=== PATIENT | male | born 1995 | race Caucasian/White ===

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

== ENCOUNTER 2017-03-02 13:32 | Observation (INO) | payer OTHER ==
[2017-03-02] MEDS ORDERED: NS 1,000 ML IV ONE (13:56)
[2017-03-02 14:02] LABS: % IMMATURE GRANULYOCYTES 0.2 % (0.0-1.1); ABSOLUTE IMMATURE GRANULOCYTES 0.01 10^3/uL (0.00-0.10); ADD DIFF? NO; ADD MORPH? NO; ADD SCAN? NO; ATYPICAL LYMPHOCYTE FLAG 0 (0-99); FRAGMENT RBC FLAG 0 (0-99); HEMATOCRIT 40.8 % (40.0-51.0); HEMOGLOBIN 13.9 g/dL (13.7-17.5); LEFT SHIFT FLG 0 (0-99); LIPEMIA HEMOLYSIS FLAG 90 (0-99); MEAN CELL HEMOGLOBIN CONCENTR. 34.1 g/dL (32.4-36.7); MEAN CELL VOLUME 82.1 fL (81.5-99.8); MEAN PLATELET VOLUME 10.8 fL (8.7-11.7); PLATELET CLUMPS FLAG 0 (0-99); PLATELET COUNT 202 10^3/uL (150-400); RED BLOOD CELL COUNT 4.97 10^6/uL (4.40-6.38); RED CELL DISTRIBUTION WIDTH 15.5 % (11.5-15.2)
--- NOTE | 2017-03-02 14:24 | EDPHY ---
HPI/HX/ROS/PE/MDM Narrative: Portions of this note were transcribed by a medical planner. I personally performed a history, physical exam, medical decision making, and confirmed accuracy of information the transcribed note. CHIEF COMPLAINT: HISTORY OF PRESENT ILLNESS: [Location, Duration, Severity, Quality, Context, Timing Modifying Factors, Associated S&S] This patient is a 21 y/o male Woke feeling well. Came back to dorm from class, ate frozen chicken nuggets. [place] discomfort periumbilical. Had GI bleed and artery burst in the spring, admitted. Had spasms following these procedures. Has followed up with GI. Discontinued Protonix in late August. Pain is now much worse and different from those spasms. Pain waxes and wanes. He had a bowel movement when the discomfort began which was normal. No nausea or vomiting. He is otherwise healthy, No fever , dysuria, hematuria, hematochezia, melena. 1. GERD. 2. GI bleed 3. REVIEW OF SYSTEMS: A 10 point review of systems was performed and is negative with the exception of the elements mentioned in the history of present illness. Adult Physical General Appearance: Alert, Eyes: Pupils equal and round, no conjunctival pallor or injection ENT, Mouth: Mucous membranes moist Neck: Normal inspection Respiratory: Lungs are clear to auscultation Cardiovascular: Regular rate and rhythm Gastrointestinal: Diffuse abdominal tenderness, primarily periumbilical. Abdomen is soft. Normal bowel sounds. Neurological: A&O, nonfocal, normal gait Skin: Warm and dry, no rash Extremities: Nontender, no pedal edema Psychiatric: Mood and affect normal - Data Points Laboratory Results: Laboratory Results 03/02/17 13:55 03/02/17 03/02/17 13:55 13:55 WBC 4.99 10^3/uL 10^3/uL (3.80-9.50) RBC 4.97 10^6/uL 10^6/uL (4.40-6.38) Hgb 13.9 g/dL g/dL (13.7-17.5) Hct 40.8 % % (40.0-51.0) MCV 82.1 fL fL (81.5-99.8) MCH 28.0 pg pg (27.9-34.1) MCHC 34.1 g/dL g/dL (32.4-36.7) RDW 15.5 % H % (11.5-15.2) Plt Count 202 10^3/uL 10^3/uL (150-400) MPV 10.8 fL fL (8.7-11.7) Neut % (Auto) 64.5 % % (39.3-74.2) Lymph % (Auto) 26.3 % % (15.0-45.0) Ware % (Auto) 8.0 % % (4.5-13.0) Eos % (Auto) 0.6 % % (0.6-7.6) Baso % (Auto) 0.4 % % (0.3-1.7) Nucleat RBC Rel Count 0.0 % % (0.0-0.2) Absolute Neuts (auto) 3.22 10^3/uL 10^3/uL (1.70-6.50) Absolute Lymphs (auto) 1.31 10^3/uL 10^3/uL (1.00-3.00) Absolute Monos (auto) 0.40 10^3/uL 10^3/uL (0.30-0.80) Absolute Eos (auto) 0.03 10^3/uL 10^3/uL (0.03-0.40) Absolute Basos (auto) 0.02 10^3/uL 10^3/uL (0.02-0.10) Absolute Nucleated RBC 0.00 10^3/uL 10^3/uL (0-0.01) Immature Gran % 0.2 % % (0.0-1.1) Immature Gran # 0.01 10^3/uL 10^3/uL (0.00-0.10) Sodium Pending Potassium Pending Chloride Pending Carbon Dioxide Pending Anion Gap Pending BUN Pending Creatinine Pending Estimated GFR Pending Glucose Pending Calcium Pending Medications Given: Discontinued Medications Sodium Chloride (Ns) 1,000 mls @ 3,000 mls/hr IV ONCE ONE Stop: 03/02/17 14:15 Last Admin: 03/02/17 13:58 Dose: 1,000 mls General Time Seen by Provider: 03/02/17 14:15 Initial Vital Signs: Initial Vital Signs Temperature (C) 36.5 C 03/02/17 13:35 Heart Rate 88 03/02/17 13:35 Respiratory Rate 22 H 03/02/17 13:35 Blood Pressure 137/85 H 03/02/17 13:35 O2 Sat (%) 98 03/02/17 13:35 O2 Delivery Mode Room Air Allergies/Adverse Reactions: No Known Allergies Allergy (Verified 03/02/17 13:41) Home Medications: Medication Instructions Recorded NK [No Known Home Meds] 03/02/17 Departure - Departure Referrals: NONE *PRIMARY CARE P,. [Primary Care Provider] - As per Instructions
[2017-03-02] MEDS ORDERED: KETAMINE 100 MG/10 ML SYR IVP ONE (14:25)
[2017-03-02] MEDS ORDERED: METOCLOPRAMIDE 10 MG/2 ML VIAL IVP ONE (14:25)
--- NOTE | 2017-03-02 14:26 | EDPHY ---
H & P Time Seen by Provider: 03/02/17 14:15 HPI/ROS: CHIEF COMPLAINT: Abdominal pain HISTORY OF PRESENT ILLNESS: 21 y/o male complaining of abdominal pain onset 30 minutes prior to arrival. He awoke this morning feeling well, went to his classes and when he returned home from class he ate lunch - chicken nuggets. Immediately following lunch, he developed gradually increasing generalized abdominal discomfort. The discomfort is now severe and waxes and wanes. He had a bowel movement when the discomfort began which was normal, and did not change the pain. No associated symptoms; no nausea, vomiting or fever. August 2016, he was admitted for a GI bleed. He developed hemorrhagic shock and required 15 units of packed red blood cells from an upper GI bleed. He then had 2 surgical procedures, including paraesophageal hernia reduction and reduction of small bowel obstruction. He had spasms following these procedures and followed up with gastroenterology, but has felt well since August. Currently, his pain is now worse and different from the episode in August. No recent GI bleeding; no hematemesis or black/bloody stools. He is otherwise healthy and denies recent illness. No fever, dysuria, hematuria, hematochezia, melena, or other associated symptoms. REVIEW OF SYSTEMS: A 10 point review of systems was performed and is negative with the exception of the elements mentioned in the history of present illness. Past Medical/Surgical History: Shannan fundoplication for GERD as infant GI hemorrhage secondary to Carlos lesions requiring 15 units packed red blood cells and gastrostomy/oversewing of blood vessel, 08/2016 Paraesophageal hernia repair, 08/2016 Small bowel obstruction, lysis of adhesions 08/2016 Social History: Occasional tobacco use. 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 Originally from [place]. Smoking Status: Never smoked Physical Exam: General Appearance: Alert, appears in pain Eyes: Pupils equal and round, no conjunctival pallor or injection ENT, Mouth: Mucous membranes moist Neck: Normal inspection Respiratory: Lungs are clear to auscultation Cardiovascular: Regular rate and rhythm Gastrointestinal: Abdomen is tense, diffusely tender, normal bowel sounds Neurological: A&O, nonfocal exam Skin: Warm and dry, no rash Extremities: Nontender, no pedal edema Psychiatric: Anxious Constitutional: Initial Vital Signs Temperature (C) 36.5 C 03/02/17 13:35 Heart Rate 88 03/02/17 13:35 Respiratory Rate 22 H 03/02/17 13:35 Blood Pressure 137/85 H 03/02/17 13:35 O2 Sat (%) 98 03/02/17 13:35 O2 Delivery Mode Room Air O2 (L/minute) 2 Allergies/Adverse Reactions: No Known Allergies Allergy (Verified 03/02/17 13:41) Home Medications: Medication Instructions Recorded NK [No Known Home Meds] 03/02/17 Medical Decision Making - Diagnostics Imaging Results: CT scan of the abdomen pelvis read by the radiologist reveals ileus, no evidence of small-bowel obstruction or other acute pathology. ED Course/Re-evaluation: This complicated GI patient presents with severe abdominal pain. Ketamine 10 mg IV given. Ketamine alleviated the abdominal discomfort for less than 1 minute. Reglan and Benadryl IV given, with no change in pain. Dilaudid 1 mg IV x 2 given. Feels better, but cont's to have pain and is quite drowsy pain medication. CT scan reveals ileus and the results discussed with the patient. Fortunately there is no evidence of small-bowel obstruction or other surgical problem. He currently feels somewhat better, but is quite drowsy because of the pain medication. Given the severity of the pain, I will admit him to the hospitalist service for observation. Abdominal exam remains unchanged. Dr. Tsai was paged at the patient's request. However, I did not receive a phone call back prior to the end of my shift. The pt was informed. Differential Diagnosis: Differential diagnosis includes though it is not limited to appendicitis, cholecystitis, diverticulitis, pyelonephritis, bowel perforation, small bowel obstruction. - Data Points Laboratory Results: Laboratory Results 03/02/17 13:55 03/02/17 13:55 Medications Given: Pantoprazole Sodium (Protonix) 40 mg PO DAILY SONIA Stop: 08/29/17 17:29 Last Admin: 03/02/17 19:13 Dose: 40 mg Discontinued Medications Diphenhydramine HCl (Benadryl Injection) 25 mg IVP EDNOW ONE Stop: 03/02/17 14:26 Last Admin: 03/02/17 14:32 Dose: 25 mg Hydromorphone HCl (Dilaudid) 1 mg IVP EDNOW ONE Stop: 03/02/17 14:47 Last Admin: 03/02/17 14:46 Dose: 1 mg Sodium Chloride (Ns) 1,000 mls @ 3,000 mls/hr IV ONCE ONE Stop: 03/02/17 14:15 Last Admin: 03/02/17 13:58 Dose: 1,000 mls Ketamine HCl (Ketamine) 10 mg IVP EDNOW ONE Stop: 03/02/17 14:26 Last Admin: 03/02/17 14:36 Dose: 10 mg Lorazepam (Ativan Injection) 1 mg IVP EDNOW ONE Stop: 03/02/17 15:38 Last Admin: 03/02/17 18:50 Dose: Not Given Metoclopramide HCl (Reglan Injection) 10 mg IVP EDNOW ONE Stop: 03/02/17 14:26 Last Admin: 03/02/17 14:32 Dose: 10 mg Departure - Departure Disposition: [facility] Inpatient Acute Clinical Impression: Abdominal pain Qualifiers: Abdominal location: generalized Qualified Code(s): R10.84 - Generalized abdominal pain Condition: Fair Report Scribed for: Carmen Molina Report Scribed by: Cathie Mckeon Date of Report: 03/02/17 Time of Report: 14:26 Physician Review and Approval Statement: 03/02/17 14:26 Portions of this note were transcribed by a medical dermatologist. I personally performed a history, physical exam, medical decision making, and confirmed accuracy of information the transcribed note.
[2017-03-02 14:28] LABS: ANION GAP 16 mEq/L (8-16); CALCIUM 9.8 mg/dL (8.5-10.4); CARBON DIOXIDE 21 mEq/l (22-31); CHLORIDE 106 mEq/L (97-110); CREATININE 0.7 mg/dL (0.7-1.3); GLOMERULAR FILTRATION RATE > 60; GLUCOSE 105 mg/dL (70-100); POTASSIUM 3.6 mEq/L (3.5-5.2); SODIUM 143 mEq/L (134-144)
[2017-03-02] MEDS ORDERED: HYDROmorphONE/DILAUDID 1 MG/ML INJ ONE (14:44)
[2017-03-02] MEDS ORDERED: HYDROmorphONE/DILAUDID 1 MG/ML INJ IVP ONE (14:46)
[2017-03-02] MEDS ORDERED: IOPAMIDOL (ISOVUE-300) 100 ML BTL ONE (14:49)
[2017-03-02 14:54] LABS: ALBUMIN 4.6 g/dL (3.5-5.0); BILIRUBIN,TOTAL 0.6 mg/dL (0.1-1.4); BILIRUBIN-CONJUGATED 0.2 mg/dL (0.0-0.5); BILIRUBIN-UNCONJUGATED 0.4 mg/dL (0.0-1.1); TOTAL PROTEIN 7.5 g/dL (6.3-8.2)
[2017-03-02] MEDS ORDERED: LORazepam 2 MG/ML INJ IVP ONE (15:37)
[2017-03-02 17:21] LABS: COLOR PALE YELLOW; LEUKOCYTE ESTERASE,URINE NEGATIVE (NEGATIVE); NITRITE,URINE NEGATIVE (NEGATIVE)
[2017-03-02] MEDS ORDERED: ACETAMINOPHEN 325 MG TAB PO PRN (17:26)
[2017-03-02] MEDS ORDERED: ONDANSETRON 4 MG/2 ML VIAL IVP PRN (17:26)
[2017-03-02] MEDS ORDERED: PROMETHAZINE HCL 25 MG/ML INJ IVP PRN (17:26)
[2017-03-02] MEDS ORDERED: NS 1,000 ML IV SCH (17:30)
--- NOTE | 2017-03-02 18:38 | GHP ---
[f rep st] HISTORY AND PHYSICAL DATE OF ADMISSION: 03/02/2017 CHIEF COMPLAINT: Abdominal pain. The patient is a 21-year-old male with a complicated past GI history. He had a Shannan fundoplication for GERD as an , and had a G-tube until age 15 due to esophageal stenosis. More recently, he had an admission here in August where he had a massive upper GI bleed secondary to Carlos lesions req uiring 15 units of blood. The bleeding was difficult to control and eventually he need a gastrostomy oversew of the bleeding vessel. During that same hospitalization he was found to have a paraesophag eal hernia that was incarcerated which required surgical reduction by Dr. Quiñones. Also had a small gurjit l obstruction, with lysis of adhesions during that admission. He was discharged home in August and vidales s been doing great since that time. He stopped his Protonix in September because he was asymptomatic. He has had no recurrence of symptoms since then. He does have a longstanding history of esophageal spas ms, however, in the past. Protonix usually helps with esophageal spasms, and he suspects that maybe it is time to go back on the Protonix. He now presents to the hospital with a chief complaint of bilateral upper quadrant abdominal pain. T his is consistent with his previous abdominal spasms. He is now completely pain-free and very hungry , wishes to eat. He has not passed any flatus or had a bowel movement since arrival. PAST MEDICAL HISTORY: 1. Shannan fundoplication for GERD as an . 2. G-tube until age 15 for esophageal stenosis. 3. Upper GI bleed secondary to Carlos lesions, eventually requiring gastrostomy oversewing of the b leeding vessel. 4. Paraesophageal hernia with incarceration, status post surgical reduction. 5. Small bowel obstruction, status post lysis of adhesions. MEDICATIONS: None. ALLERGIES: No known drug allergies. SOCIAL HISTORY: No smoking. Rare alcohol. He is a [employer] student. His parents live in [place]. REVIEW OF SYSTEMS: Complete review of systems obtained. Review of systems is negative regarding con stitutional, HEENT, GI, pulmonary, cardiovascular, , hematology, skin, musculoskeletal, endocrine p sych, except for positives and negatives as in HPI. FAMILY HISTORY: Reviewed, noncontributory to presenting complaint. PHYSICAL EXAMINATION: GENERAL: Well-developed, well-nourished male, in no acute distress. VITAL SI GNS: Temperature is 36.5, pulse 88, blood pressure 154/98, saturating 98% on room air. EYES: Kaelyn l conjunctivae. Pupils react to light. ENT: Normal ears and nose. Hearing intact. Normal lips an d teeth. Oropharynx moist. NECK: Trachea midline. No thyromegaly. CHEST: Normal expiratory effo rt. LUNGS: Clear to auscultation bilaterally. CARDIOVASCULAR: Regular rhythm. No murmur. No low er extremity edema. ABDOMEN: Soft, nontender. No hepatomegaly. SKIN: Warm, dry, intact without r ascencion. MUSCULOSKELETAL: No cyanosis or clubbing. Strength 5/5 upper and lower extremities. NEURO: Cranial nerves intact. Normal sensation to light touch. PSYCH: Awake, alert and oriented x3. Norm al affect. Normal judgment and insight. Normal memory. LABS: White count 4.99, hematocrit 40.8 platelets 202. Sodium 143, potassium 3.6, chloride 106, bicarb 21, BUN 12, creatinine 0.7, glucose 105. LFTs are negative. CT scan of the abdomen and pelvis shows gastroenteritis with ileus. Otherwise, negative. MEDICAL RECORD REVIEW: I reviewed them. They are extensive from August. It was summarized above. This case was discussed with Dr. Lilly Moilna of emergency room. She would like him admitted for furt her observation. ASSESSMENT AND PLAN: 1. Ileus. I suspect he had a recurrence of spasm versus potentially has a gastroenteritis. He is n ow improved, but does need to have his diet advanced to ensure that he is able to tolerate it. I ramon l start his diet and we will observe, although I anticipate he will do well. 2. Carlos lesions with gastrointestinal bleed. Currently no evidence of bleeding. Will restart hi s Protonix. 3. Complicated gastroesophageal reflux disease, with history of Shannan and percutaneous endoscopic g astrostomy tube as a child. He does wish to resume Protonix at this time, which I think is a good id ea. We will give him his first dose now. CODE STATUS: Full. ADMISSION STATUS: Will admit to observation, hopeful discharge home within the next 24 hours. DVT PROPHYLAXIS: He is low risk. /[id number]/MODL
[2017-03-02] MEDS: PANTOPRAZOLE SODIUM 40 MG TAB PO SCH (19:13)
[2017-03-02 19:39] VITALS: RESP 16
[2017-03-03 05:56] LABS: % IMMATURE GRANULYOCYTES 0.2 % (0.0-1.1); ABSOLUTE IMMATURE GRANULOCYTES 0.01 10^3/uL (0.00-0.10); ADD DIFF? NO; ADD MORPH? NO; ADD SCAN? NO; ATYPICAL LYMPHOCYTE FLAG 0 (0-99); FRAGMENT RBC FLAG 0 (0-99); HEMATOCRIT 37.9 % (40.0-51.0); HEMOGLOBIN 12.4 g/dL (13.7-17.5); LEFT SHIFT FLG 0 (0-99); LIPEMIA HEMOLYSIS FLAG 80 (0-99); MEAN CELL HEMOGLOBIN 27.5 pg (27.9-34.1); MEAN CELL HEMOGLOBIN CONCENTR. 32.7 g/dL (32.4-36.7); MEAN PLATELET VOLUME 10.4 fL (8.7-11.7); PLATELET CLUMPS FLAG 10 (0-99); PLATELET COUNT 177 10^3/uL (150-400); RED BLOOD CELL COUNT 4.51 10^6/uL (4.40-6.38); RED CELL DISTRIBUTION WIDTH 15.2 % (11.5-15.2)
[2017-03-03 06:14] LABS: ANION GAP 13 mEq/L (8-16); CALCIUM 9.3 mg/dL (8.5-10.4); CARBON DIOXIDE 22 mEq/l (22-31); CHLORIDE 110 mEq/L (97-110); CREATININE 0.8 mg/dL (0.7-1.3); GLOMERULAR FILTRATION RATE > 60; GLUCOSE 95 mg/dL (70-100); POTASSIUM 4.1 mEq/L (3.5-5.2); SODIUM 145 mEq/L (134-144)
[2017-03-03 07:40] VITALS: BP 112/60; PULSE 51; TEMP 97.9; O2SAT 95
[2017-03-03] MEDS: PANTOPRAZOLE SODIUM 40 MG TAB PO SCH (10:09)
--- NOTE | 2017-03-03 12:43 | HOSPPROG ---
Hospitalist Progress Note Assessment/Plan: Patient is a 21-year-old male with a complicated GI history. He was recently he admitted here in August with a massive upper GI bleed secondary to Carlos lesion. At that time he required 15 units of blood. In addition he was also found to have a paraesophageal hernia that was incarcerated which required surgical reduction by Dr. Quiñones. He now presents the hospital with mainly bilateral upper quadrant abdominal pain this is consistent with his previous abdominal spasms on arrival his pain free and very hungry he had a CT scan of the abdomen pelvis which showed gastroenteritis with ileus otherwise noted to be negative. * ileus -likely secondary from a potential gastritis -he is markedly improved today and is eating and drinking well * history of Carlos lesions with gastrointestinal bleed -resume proton * complicated GERD with history of niacin and percutaneous and a scalp a gastrostomy tube was child -continue Protonix/will give him a script *Plan: dc home /will give him a PCP for f/u care Subjective: Robert is feeling well/ no complaints. Objective: Vital Signs Temp Pulse Resp BP Pulse Ox 36.6 C 51 L 16 112/60 95 03/03/17 07:39 03/03/17 07:39 03/03/17 07:39 03/03/17 07:39 03/03/17 07:39 Laboratory Results 03/03/17 05:47 03/03/17 05:47 03/02/17 03/03/17 03/04/17 05:59 05:59 05:59 Intake Total 1000 Balance 1000 - Physical Exam Constitutional: no apparent distress, not in pain, other (thin) Eyes: PERRL Ears, Nose, Mouth, Throat: hearing normal Respiratory: no respiratory distress Gastrointestinal: normoactive bowel sounds Musculoskeletal: full muscle strength Neurologic: AAOx3 Psychiatric: interacting appropriately ICD10 Worksheet Patient Problems: Problems Problem Status Onset Abdominal pain Acute Severe anemia Acute Syncope Acute Upper GI bleed Acute
--- NOTE | 2017-03-03 12:49 | ASMTCMCOM ---
CM Note CM Note Notes: Spoke w/RN, anticipate will dc home independent when medically stable. CM available for any changes. Date Signed: 03/03/2017 12:49 PM Electronically Signed By:Yuliana Elkins RN
--- NOTE | 2017-03-03 14:38 | GDS ---
[f rep st] DISCHARGE SUMMARY DISCHARGE DIAGNOSES: 1. Ileus. 2. History of Carlos lesions with gastrointestinal bleed. 3. Complicated gastroesophageal reflux disease with a history of Shannan fundoplication as an infant. Briefly, the patient is a 21-year-old male with a complicated gastrointestinal history. He had a Nis sen fundoplication for GERD as an infant. He had a G-tube until age 15 due to esophageal stenosis. In August, he had an admission, in which he had a massive upper GI bleed. This was secondary to Camer on lesions. At that time, he required 15 units of blood. During that same hospitalization, he was f ound to have a paraesophageal hernia that was incarcerated, which required surgical reduction. He al so had a small-bowel obstruction with lysis of adhesions during that admission. He had been discharg ed home and had been doing great. He stopped using Protonix because he was asymptomatic. He present ed to the emergency room this time with bilateral upper quadrant abdominal pain. This is consistent with his previous symptoms. He had a CT scan of the abdomen and pelvis, which showed gastroenteritis with ileus, otherwise negative. Today, he is eating and drinking well. He will be discharged home on Protonix for the next several months and further followup with a primary care provider. HOSPITAL COURSE: 1. Ileus. This is likely secondary from potential gastritis. He is markedly improved. He is eatin g and drinking well. 2. History of Carlos lesions of the gastrointestinal bleed. Resumed his Protonix. DISCHARGE CONDITION: Stable. Blood pressure is 112/60. Heart rate is 51. Respiratory rate is 16. O2 sats on room air 95%, temperature 36.6 Celsius. DISCHARGE MEDICATIONS: Please see the EMR. Protonix has been resumed. DISCHARGE INSTRUCTIONS: 1. If he has any further problems with abdominal pain, return to the ER. 2. To follow up with the primary care provider. He has been given a name of a doctor for further [facility] care. /[id number]/MODL
--- NOTE | 2017-03-03 16:54 | ASDISCHSUM ---
Discharge Information Plan Status:Home with No Needs Medically Cleared to Leave: Discharge Date:03/03/2017 02:50 PM CM D/C Disposition:Home, Routine, Self-Care ADT D/C Disposition:Home, Routine, Self-Care Projected Discharge Date:03/03/2017 02:50 PM Transportation at D/C: Discharge Delay Reason: Follow-Up Date:03/03/2017 02:50 PM Discharge Slot: Final Diagnosis: Placement Information Patient Contact Information Contact Name:DELIAEBEN Relationship:Mother Address:[address] Work Phone: City:[facility] Phone: State/Zip Code:[place] [address] Email: Financial Information Financial Class:HMO and PPO Plans Primary Plan Desc:[employer] Primary Plan Number:[id number] Secondary Plan Desc: Secondary Plan Number: Assessment Information [facility] CM Progress Note CM Note CM Note Notes: Spoke w/RN, anticipate will dc home independent when medically stable. CM available for any changes. Date Signed: 03/03/2017 12:49 PM Electronically Signed By:Yuliana Elkins RN Intervention Information
== END 2017-03-03 14:50 | disposition home or self-care (01) ==
LOC: F3E 17:30
PROVIDERS: ADMIT Internal Medicine; ATTEND Hospitalist
DX: K56.7 Ileus, unspecified (principal); R10.84 Generalized abdominal pain; K21.9 Gastro-esophageal reflux disease without esophagitis; Z87.19 Personal history of other diseases of the digestive system
CPT/HCPCS: 74177; G0378; 96374; J1170; J1200; J2765; Q9967